=== PATIENT | male | born 1975 ===

== ENCOUNTER 2018-01-31 18:57 | Emergency (ER) | payer OTHER ==
[2018-01-31 19:19] VITALS: TEMP 98.2
[2018-01-31] MEDS ORDERED: Sodium Chloride 0.9% 1,000 ML IV STA (20:10)
--- NOTE | 2018-01-31 20:19 | ED PDOC ---
HPI: Male Pain Time Seen by Provider: 01/31/18 19:30 Chief Complaint (Nursing): Groin Pain Chief Complaint (Provider): Groin Pain History Per: Patient History/Exam Limitations: no limitations Onset/Duration Of Symptoms: Days (x4 weeks) Current Symptoms Are (Timing): Still Present Additional Complaint(s): 42 year old male who was told in the past that he may have dm presents to the ED with rash and swelling to distal part of penis onset 4 weeks. Patients uncircumcised foreskin is very red, and the underside of the foreskin is red and irritated. He reports increased difficulty retracting foreskin when he has to use the bathroom. He states he had dysuria, frequency, excessive thirst, but denies fever, chills vomiting, diarrhea, hematuria, flank pain or any other medical complaints. He admits t not seeking his PMD in a while. PMD: [facility] Past Medical History Reviewed: Historical Data, Nursing Documentation, Vital Signs Vital Signs: Last Vital Signs Temp 98.2 F 01/31/18 19:15 Pulse 86 01/31/18 19:15 Resp 18 01/31/18 19:15 BP 135/90 01/31/18 19:15 Pulse Ox 97 01/31/18 19:15 - Medical History PMH: Kidney Stones Denies: Chronic Kidney Disease - Surgical History Surgical History: No Surg Hx - Family History Family History: States: Diabetes, Hypertension - Social History Current smoker - smoking cessation education provided: No Ex-Smoker (has not smoked in the last 12 months): No - Home Medications Home Medications: Ambulatory Orders Medication Instructions Recorded Ibuprofen [Motrin] 600 mg PO Q6H PRN #20 tab 11/17/15 Tamsulosin [Flomax] 0.4 mg PO DAILY #14 cap 11/17/15 oxyCODONE/Acetaminophen [Percocet 1 tab PO Q6 PRN #20 tab 11/17/15 5/325 mg Tab] Clotrimazole 1% Cream [Lotrimin 1%] 1 appl TP BID #1 tube 01/31/18 Glucose Meter [Blood Glucose 1 dev XX PRN PRN #1 dev 01/31/18 Monitoring System] Glucose, Blood Test [Blood Glucose 1 packet XX PRN PRN #1 dev 01/31/18 Test Strips] metFORMIN [glucOPHAGE] 500 mg PO DAILY #30 tab 01/31/18 - Allergies Allergies/Adverse Reactions: Allergies Allergy/AdvReac Type Severity Reaction Status Date / Time No Known Allergies Allergy Verified 01/31/18 19:19 Review of Systems ROS Statement: Except As Marked, All Systems Reviewed And Found Negative Genitourinary Male: Positive for: Dysuria, Frequency, Rash (with erythema and irritation ), Penile Pain, Other (difficulty retracting foreskin). Negative for : Hematuria Physical Exam - Reviewed Nursing Documentation Reviewed: Yes Vital Signs Reviewed: Yes - Physical Exam Appears: Positive for: Non-toxic, No Acute Distress Skin: Positive for: Warm, Dry Eye Exam: Positive for: EOMI, PERRL ENT: Positive for: Pharynx Is (clear), Other (tacky mucous membranes) Neck: Positive for: Painless ROM, Supple Cardiovascular/Chest: Positive for: Regular Rate, Rhythm. Negative for: Murmur Respiratory: Positive for: Normal Breath Sounds. Negative for: Respiratory Distress Gastrointestinal/Abdominal: Positive for: Other (obese and protuberant abdomen) . Negative for: Tenderness, Mass, Distended, Guarding, Rebound Male Genital Exam: Positive for: no hernia, other (Whit invoice control clerk at bedside during exam: Uncircumcised, white fluid on inner foreskin and glans with erythema, no inguinal lymphadenopathy ). Negative for: testicular tenderness (R ), testicular tenderness (L) Back: Positive for: Normal Inspection. Negative for: Decreased ROM Extremity: Positive for: Normal ROM. Negative for: Deformity Lymphatic: Negative for: Adenopathy Neurologic/Psych: Positive for: Alert, Oriented (x3) - Laboratory Results Result Diagrams: 01/31/18 20:57 01/31/18 20:57 - ECG O2 Sat by Pulse Oximetry: 97 (RA) Pulse Ox Interpretation: Normal Medical Decision Making Medical Decision Making: Time: 1929 Initial Impression: Balanitis rule out hypoglycemia Initial Plan: --VBG --CMP --Magnesium --Phosphorous --Urine dip --CBC with differentials --Chlamydia --Glucose --Urine culture --Urinalysis Labs c/w hyperglycemia without anion gap or acidosis Udip with glucose and ketones Glucose decreasing after fluid and insulin DW pt findings and plan of care. Metformin daily, strict diabetic diet, f/u clinic within a week. Scribe Attestation: Documented by Winnie Christine, acting as a scribe for Carmen Morales MD Provider Scribe Attestation: All medical record entries made by the Scribe were at my direction and personally dictated by me. I have reviewed the chart and agree that the record accurately reflects my personal performance of the history, physical exam, medical decision making, and the department course for this patient. I have also personally directed, reviewed, and agree with the discharge instructions and disposition. Disposition - Clinical Impression Clinical Impression: Max Benitez Counseled Patient/Family Regarding: Studies Performed, Diagnosis, Need For Followup, Rx Given - Disposition Referrals: [facility] [Outside] Disposition: Routine/Home Disposition Time: 23:21 Condition: IMPROVED Prescriptions: Clotrimazole 1% Cream [Lotrimin 1%] 1 appl TP BID #1 tube Glucose Meter [Blood Glucose Monitoring System] 1 dev XX PRN PRN #1 dev PRN Reason: diabetes Glucose, Blood Test [Blood Glucose Test Strips] 1 packet XX PRN PRN #1 dev PRN Reason: diabetes metFORMIN [glucOPHAGE] 500 mg PO DAILY #30 tab Instructions: The ABCs of Eli Vilchis (LEONEL), Diabetes and Diet Print Language: SENEGALESE
[2018-01-31 20:37] LABS: VENOUS BLOOD GAS BASE EXCESS 2.8 mmol/L (0.0-2.0); VENOUS BLOOD GAS PCO2 47 mmHg (40-60); VENOUS BLOOD GAS PO2 37 mm/Hg (30-55); VENOUS BLOOD PH 7.39 (7.32-7.43)
[2018-01-31 20:53] LABS: URINE BILIRUBIN NEGATIVE (NEGATIVE); URINE BLOOD NEGATIVE (NEGATIVE); URINE CLARITY CLEAR (Clear); URINE COLOR COLORLESS (YELLOW); URINE GLUCOSE (UA) >=500 mg/dL (Normal); URINE LEUKOCYTE ESTERASE NEG Leu/uL (Negative); URINE PROTEIN NEGATIVE (NEGATIVE); URINE UROBILINOGEN 0.2-1.0 mg/dL (0.2-1.0)
[2018-01-31] MEDS ORDERED: Insulin Regular 100 units/ml SC STA (21:03)
[2018-01-31] MEDS ORDERED: Insulin Regular 100 units/ml IVP STA (21:03)
[2018-01-31 21:08] LABS: BASO % 0.8 % (0.0-2.0); EOS # 0.1 K/uL (0.0-0.7); HEMOGLOBIN 14.9 g/dL (12.0-18.0); LYMPH # 2.3 K/uL (1.0-4.3); LYMPH % 43.3 % (20.0-40.0); MEAN CORPUSCULAR HGB CONC 33.8 g/dL (33.0-37.0); MEAN PLATELET VOLUME 10.8 fl (7.2-11.7); MONO # 0.7 K/uL (0.0-0.8); MONO % 12.5 % (0.0-10.0); NEUT # 2.2 K/uL (1.8-7.0); NEUT % 41.4 % (50.0-75.0); NRBC % 0.3 % (0.0-0.0); RBC 5.31 Mil/uL (4.40-5.90); RED CELL DISTRIBUTION WIDTH 14.3 % (11.5-14.5); WHITE BLOOD COUNT 5.3 K/uL (4.8-10.8)
[2018-01-31 21:40] LABS: ALB/GLOB RATIO 1.1 (1.0-2.1); ALBUMIN 4.2 g/dL (3.5-5.0); ALT/SGPT 42 U/L (21-72); AST/SGOT 25 U/L (17-59); BLOOD UREA NITROGEN 15 mg/dl (9-20); CALCIUM 9.5 mg/dL (8.4-10.2); GFR AFRICAN-AMERICAN > 60; GFR NON-AFRICAN AMERICAN > 60
[2018-02-01 00:12] VITALS: BP 132/78; PULSE 82; RESP 17; O2SAT 98
== END 2018-01-31 23:37 | disposition home or self-care (01) ==
LOC: H.ER 18:57
DX: N48.1 Balanitis (principal); E11.65 Type 2 diabetes mellitus with hyperglycemia; Z79.84 Long term (current) use of oral hypoglycemic drugs
CPT/HCPCS: 80053; 81003; 82803; 82948; 83735; 84100; 85025; 87086; 87491; 87591; 96372; 96374; 99283; J7030

== ENCOUNTER 2018-02-02 17:22 | Observation (INO) | payer OTHER, SELFPAY ==
--- NOTE | 2018-02-02 18:11 | ED PDOC ---
ATTENTION PHYSICIANS Hyperglycemia/Hypoglycemia Chief Complaint (Provider): elevate glucose History Per: Patient : The patient does not have any of the infectious symptoms listed except for those marked. Additional Complaint(s): 42-year-old male with history of diabetes presents with hyperglycemia. He was seen at clinic today and was referred to ER for further evaluation. Glucose at clinic was over 500 and upon arrival to ER glucose is noted to be 440. Patient complains of slight dizziness with no other symptoms at this time. PMD: [facility] <Carmen Mcbride - Last Filed: 02/02/18 19:42> <Sonja Davis - Last Filed: 02/07/18 10:45> Time Seen by Provider: 02/02/18 18:07 Chief Complaint (Nursing): High Blood Sugar Past Medical History Reviewed: Historical Data, Nursing Documentation, Vital Signs Vital Signs: Last Vital Signs Temp 98.1 F 02/02/18 17:25 Pulse 89 02/02/18 17:25 Resp 16 02/02/18 17:25 BP 130/84 02/02/18 17:25 Pulse Ox 99 02/02/18 17:25 - Medical History PMH: Diabetes - Surgical History Other surgeries: b/l shoulder surgery - Family History Family History: States: Diabetes, Hypertension - Living Arrangements Living Arrangements: With Family - Social History Current smoker - smoking cessation education provided: No Alcohol: None Drugs: Denies <MayankaddiCarmen - Last Filed: 02/02/18 19:42> Vital Signs: Last Vital Signs Temp 97.9 F 02/03/18 07:32 Pulse 75 02/03/18 07:32 Resp 19 02/03/18 07:32 BP 109/65 02/03/18 07:32 Pulse Ox 96 02/03/18 07:32 <Sonja Davis - Last Filed: 02/07/18 10:45> - Home Medications Home Medications: Ambulatory Orders Medication Instructions Recorded Ibuprofen [Motrin Tab] 600 mg PO Q6H PRN #20 tab 11/17/15 Clotrimazole 1% Cream [Lotrimin 1%] 1 appl TP BID #1 tube 01/31/18 Glucose Meter [Blood Glucose 1 dev XX PRN PRN #1 dev 01/31/18 Monitoring System] Glucose, Blood Test [Blood Glucose 1 packet XX PRN PRN #1 dev 01/31/18 Test Strips] Fenofibrate [Tricor] 48 mg PO DAILY #30 tab 02/03/18 GlipiZIDE SR [Glucotrol XL] 5 mg PO DAILY #30 tab 02/03/18 metFORMIN [glucOPHAGE] 500 mg PO BID #60 tab 02/03/18 - Allergies Allergies/Adverse Reactions: Allergies Allergy/AdvReac Type Severity Reaction Status Date / Time No Known Allergies Allergy Verified 02/02/18 17:24 Review of Systems ROS Statement: Except As Marked, All Systems Reviewed And Found Negative Constitutional: Negative for: Fever, Chills, Weakness Cardiovascular: Negative for: Chest Pain Gastrointestinal: Negative for: Nausea, Vomiting Neurological: Positive for: Dizziness. Negative for: Headache <MayankCarmen fontana - Last Filed: 02/02/18 19:42> Physical Exam - Reviewed Nursing Documentation Reviewed: Yes Vital Signs Reviewed: Yes - Physical Exam Appears: Positive for: Well, Non-toxic, No Acute Distress Skin: Positive for: Normal Color. Negative for: Rash Eye Exam: Positive for: Normal appearance Cardiovascular/Chest: Positive for: Regular Rate, Rhythm Respiratory: Positive for: Normal Breath Sounds. Negative for: Wheezing, Respiratory Distress Gastrointestinal/Abdominal: Positive for: Other (Obese nontender abdomen) Back: Negative for: L CVA Tenderness, R CVA Tenderness Extremity: Positive for: Normal ROM Neurologic/Psych: Positive for: Alert, Oriented <MayankaddiCarmen - Last Filed: 02/02/18 19:42> - Laboratory Results Result Diagrams: 02/02/18 19:01 Urine dip results: Positive for: Ketones. Negative for: Leukocyte Esterase, Blood, Nitrate, Glucose, Bilirubin, Protein - ECG O2 Sat by Pulse Oximetry: 99 Pulse Ox Interpretation: Normal <MayankaddiCarmen - Last Filed: 02/02/18 19:42> - Laboratory Results Result Diagrams: 02/02/18 19:01 02/03/18 05:55 <Sonja Davis - Last Filed: 02/07/18 10:45> Medical Decision Making Medical Decision Makin-year-old male with history of diabetes presenting with hyperglycemia. Plan: CBC CMP EKG Urine dip IVF 10 units IV insulin ABG Case was discussed with Dr. Weber, family practice resident, who states to admit patient. <Carmen Mcbride - Last Filed: 02/02/18 19:42> Disposition - Patient ED Disposition Is Patient to be Admitted: Transfer of Care - Disposition Disposition: Transfer of Care Disposition Time: 20:00 Patient Signed Over To: Harriett Medina Handoff Comments: Signed put pending diagnostic testing results. <Carmen Mcbride - Last Filed: 02/02/18 19:42> <Sonja Davis - Last Filed: 02/07/18 10:45> - Clinical Impression Clinical Impression: Hyperglycemia - Disposition Condition: FAIR - PA / DRIVE IN TELLER / Resident Statement MD/DO has examined the patient and agrees with the treatment plan. <Sonja Davis - Last Filed: 02/07/18 10:45>
[2018-02-02] MEDS ORDERED: Sodium Chloride 0.9% 1,000 ML IV STA (18:26)
[2018-02-02] MEDS ORDERED: Insulin Regular 100 units/ml IV STA (18:26)
[2018-02-02 19:08] LABS: BASO % 0.5 % (0.0-2.0); EOS # 0.1 K/uL (0.0-0.7); EOS % 1.7 % (0.0-4.0); HEMOGLOBIN 14.7 g/dL (12.0-18.0); LYMPH # 2.3 K/uL (1.0-4.3); LYMPH % 38.2 % (20.0-40.0); MEAN CORPUSCULAR HEMOGLOBIN 28.3 pg (27.0-31.0); MEAN CORPUSCULAR HGB CONC 34.1 g/dL (33.0-37.0); MEAN PLATELET VOLUME 10.1 fl (7.2-11.7); MONO # 0.6 K/uL (0.0-0.8); MONO % 10.5 % (0.0-10.0); NEUT % 49.1 % (50.0-75.0); NRBC % 0.1 % (0.0-0.0); RBC 5.2 Mil/uL (4.40-5.90); RED CELL DISTRIBUTION WIDTH 14.5 % (11.5-14.5); WHITE BLOOD COUNT 6.1 K/uL (4.8-10.8)
[2018-02-02] MEDS ORDERED: Insulin Regular 100 units/ml ONE (19:21)
[2018-02-02 19:44] LABS: ALB/GLOB RATIO 1.1 (1.0-2.1); ALBUMIN 4.1 g/dL (3.5-5.0); ALT/SGPT 42 U/L (21-72); AST/SGOT 32 U/L (17-59); BLOOD UREA NITROGEN 15 mg/dl (9-20); CALCIUM 9.7 mg/dL (8.4-10.2); GFR NON-AFRICAN AMERICAN > 60
[2018-02-02 20:05] LABS: ABG ALLEN TEST YES; ARTERIAL BLOOD GAS HCO3 24.4 mmol/L (21-28); ARTERIAL BLOOD GAS HEMOGLOBIN 14.7 g/dL (11.7-17.4); ARTERIAL BLOOD GAS O2 CAPACITY 19.8 mL/dL (16-24); ARTERIAL BLOOD GAS O2 CONTENT 19.5 ML/dL (15-23); ARTERIAL BLOOD GAS O2 SAT 98.5 % (95-98); ARTERIAL BLOOD GAS PCO2 39 mm/Hg (35-45); ARTERIAL BLOOD GAS PO2 86 mm/Hg (80-100); ARTERIAL BLOOD GAS TCO2 25.4 mmol/L (22-28)
--- NOTE | 2018-02-02 21:32 | ED PDOC ---
- Laboratory Results Result Diagrams: 02/02/18 19:01 02/02/18 19:01 - ECG O2 Sat by Pulse Oximetry: 99 - Progress ED Course And Treament: Case endorsed to life insurance underwriter from Rae ROSENBAUM pending MADELEINE canseco Case discussed with FP resident on-call for placement in obs med/surg for hyperglycemia, uncontrolled DM Disposition - Clinical Impression Clinical Impression: Hyperglycemia - POA Present On Arrival: Poor Glycemic Control - Disposition Disposition: Hospitalized as Observation Patient Disposition Time: 21:32 Condition: FAIR Forms: [employer] (Japanese)
[2018-02-02] MEDS ORDERED: Glucagon Recombinant 1 mg Inj IM PRN (22:18)
[2018-02-02] MEDS ORDERED: Dextrose 50% SYRINGE Inj (50 ml) IV PRN (22:18)
--- NOTE | 2018-02-02 22:23 | CP.PCM.HP ---
History of Present Illness - History of Present Illness History of Present Illness: 42 yo , m, PMhx/o Prediabetes, Obesity, Nephrolithiasis, new onset of DM presents to ED referred from clinic due to symptomatic Hyperglycemia. Patient was seen in ED 2 days ago for balanitis and hyperglycemia and had ER f/u apt in clinic today. BS in clinic >500. Patient reports polyuria and polydipsia started about 2 months ago associated with weight loss 30 lbs and mild dizziness for the last 7 days. He denies fever, dysuria, flank pain, chest pain , SOB, n,v,abd pain, headache, confusion. Patient reports after ED visit he was discharged with metformin 500 mg daily and had acucheck 301 today at home. He denies Fhx/o DM . On evaluation in Ed patient with his and son, asymptomatic, vs stable. PMD: [facility]. Last seen today Dr Navarrete PMhx: Prediabetes, Obesity, Nephrolithiasis Allergies: NKDA Meds: Metformin 500 mg daily started 2 days ago PSurghx: b/L shoulder rotator cuff PSHx: + Etoh social. Neg rect drugs, cig Status: Full code Next of kin: Cuate Gaitan ED Course VS: normal PE: Genital uncircumcised foreskin mild redness. Labs: CBC: normal. CMP: normal, anion gap normal. AVG: normal BS: 440 . troponin normal Urine dip: glucosuria, mild ketone body 15 Imaging: CXR: increased peribronchial markings. No infiltrate as interpretated by me. EKG: NSR: St elevation probably due to early repolarization. Meds: Insulin Humulin 10 unit IV stat. IF fluids NS 1L Present on Admission - Present on Admission Any Indicators Present on Admission: No History of DVT/PE: No Urinary Catheter: No Review of Systems - Review of Systems All systems: reviewed and no additional remarkable complaints except - Genitourinary Genitourinary: Other (polyuria,polydypsia) - Neurological Neurological: Dizziness - Endocrine Endocrine: Polydipsia, Polyphagia, Polyuria Past Patient History - Past Medical History & Family History Past Medical History?: No - Past Social History Alcohol: None Drugs: Denies - CARDIAC Hx Cardiac Disorders: No - PULMONARY Hx Respiratory Disorders: No - NEUROLOGICAL Hx Neurological Disorder: No - HEENT Hx HEENT Problems: No - RENAL Hx Chronic Kidney Disease: No Hx Kidney Stones: Yes - ENDOCRINE/METABOLIC Hx Endocrine Disorders: No Hx Diabetes Mellitus Type 2: Yes - HEMATOLOGICAL/ONCOLOGICAL Hx Blood Disorders: No - INTEGUMENTARY Hx Dermatological Problems: No - MUSCULOSKELETAL/RHEUMATOLOGICAL Hx Musculoskeletal Disorders: No Hx Falls: No - GASTROINTESTINAL Hx Gastrointestinal Disorders: No - GENITOURINARY/GYNECOLOGICAL Hx Genitourinary Disorders: No - PSYCHIATRIC Hx Psychophysiologic Disorder: No Hx Substance Use: No - SURGICAL HISTORY Hx Surgeries: No - ANESTHESIA Hx Anesthesia: No Hx Anesthesia Reactions: No Hx Malignant Hyperthermia: No Meds Allergies/Adverse Reactions: Allergies Allergy/AdvReac Type Severity Reaction Status Date / Time No Known Allergies Allergy Verified 02/02/18 17:24 Physical Exam - Constitutional Appears: Non-toxic, No Acute Distress - Head Exam Head Exam: ATRAUMATIC, NORMOCEPHALIC - Eye Exam Eye Exam: Normal appearance - ENT Exam ENT Exam: Mucous Membranes Moist - Neck Exam Neck exam: Positive for: Normal Inspection - Respiratory Exam Respiratory Exam: Clear to Auscultation Bilateral. absent: Rales, Rhonchi, Wheezes - Cardiovascular Exam Cardiovascular Exam: REGULAR RHYTHM, +S1, +S2 - GI/Abdominal Exam GI & Abdominal Exam: Normal Bowel Sounds, Soft. absent: Guarding, Rebound, Tenderness - Extremities Exam Extremities exam: Positive for: normal inspection. Negative for: pedal edema - Back Exam Back exam: NORMAL INSPECTION. absent: CVA tenderness (L), CVA tenderness (R) - Neurological Exam Neurological exam: Alert, Oriented x3 - Psychiatric Exam Psychiatric exam: Normal Affect, Normal Mood - Skin Skin Exam: Erythema (uncircumcised foreskin is mild red, and the underside of the foreskin is mild red too) Results - Vital Signs Recent Vital Signs: Last Vital Signs Temp 98.1 F 02/02/18 17:25 Pulse 89 02/02/18 17:25 Resp 16 02/02/18 17:25 BP 130/84 02/02/18 17:25 Pulse Ox 99 02/02/18 21:32 - Labs Result Diagrams: 02/02/18 19:01 02/02/18 19:01 Labs: Laboratory Results - last 24 hr 02/02/18 02/02/18 02/02/18 17:31 19:01 19:01 WBC 6.1 RBC 5.20 Hgb 14.7 Hct 43.2 MCV 83.0 MCH 28.3 MCHC 34.1 RDW 14.5 Plt Count 286 MPV 10.1 Neut % (Auto) 49.1 L Lymph % (Auto) 38.2 Kent % (Auto) 10.5 H Eos % (Auto) 1.7 Baso % (Auto) 0.5 Neut # (Auto) 3.0 Lymph # (Auto) 2.3 Kent # (Auto) 0.6 Eos # (Auto) 0.1 Baso # (Auto) 0.0 pCO2 pO2 HCO3 ABG pH ABG Total CO2 ABG O2 Saturation ABG O2 Content ABG Base Excess ABG Hemoglobin ABG Carboxyhemoglobin POC ABG HHb (Measured) ABG Methemoglobin ABG O2 Capacity Mundo Test A-a O2 Difference Hgb O2 Saturation FiO2 Sodium 132 Potassium 4.2 Chloride 97 L Carbon Dioxide 25 Anion Gap 14 BUN 15 Creatinine 0.7 L Est GFR ( Amer) > 60 Est GFR (Non-Af Amer) > 60 POC Glucose (mg/dL) 440 H* Random Glucose 453 H* D Calcium 9.7 Total Bilirubin 0.9 AST 32 ALT 42 Alkaline Phosphatase 171 H D Troponin I Total Protein 7.9 Albumin 4.1 Globulin 3.7 Albumin/Globulin Ratio 1.1 02/02/18 02/02/18 02/02/18 19:46 19:50 20:49 WBC RBC Hgb Hct MCV MCH MCHC RDW Plt Count MPV Neut % (Auto) Lymph % (Auto) Kent % (Auto) Eos % (Auto) Baso % (Auto) Neut # (Auto) Lymph # (Auto) Kent # (Auto) Eos # (Auto) Baso # (Auto) pCO2 39 pO2 86 HCO3 24.4 ABG pH 7.40 ABG Total CO2 25.4 ABG O2 Saturation 98.5 H ABG O2 Content 19.5 ABG Base Excess -0.5 ABG Hemoglobin 14.7 ABG Carboxyhemoglobin 2.7 H POC ABG HHb (Measured) 1.4 ABG Methemoglobin 2.0 ABG O2 Capacity 19.8 Mundo Test Yes A-a O2 Difference 15.0 Hgb O2 Saturation 94.0 L FiO2 21.0 Sodium Potassium Chloride Carbon Dioxide Anion Gap BUN Creatinine Est GFR ( Amer) Est GFR (Non-Af Amer) POC Glucose (mg/dL) 301 H Random Glucose Calcium Total Bilirubin AST ALT Alkaline Phosphatase Troponin I < 0.0120 Total Protein Albumin Globulin Albumin/Globulin Ratio Assessment & Plan - Assessment and Plan (Free Text) Plan: 42 yo , m, PMhx/o Prediabetes, Obesity, Nephrolithiasis, new onset of DM admitted for symptomatic Hyperglycemia 1) Hyperglycemia -symptomatic 2/2 to new onset DM -BS ED: 440 mg/dl, AVB normal, no acidotic, anion gap normal -s/p insulin 10 unit ED. BS 301 -SSI -Hypoglycemia protocol -NS maintenance 2) DM uncontrolled -new onset -hx/o prediabetes -recent seen in in ED on metformin 500 mg daily - Metformin 500 mg BID -f/u hgb A1c, lipid profile 3) Balanitis -resolving -c/w clotrimazole cream top BID 4) Obesity Recent weight loss due to symptomatic hyperglycemia -f/u lipid profile 5) Nephrolithiasis -controlled -CT abd 2015 reviewed: right midpole lithiasis 1-2 mm. distal uretheral lithiasis 6) DVT Prophylaxis -Lovenox 40 mg sc daily
[2018-02-02] MEDS: Sodium Chloride 0.9% 1,000 ML IV SCH (23:59)
[2018-02-03] MEDS: Sodium Chloride 0.9% 1,000 ML IV SCH (07:27)
[2018-02-03 07:29] LABS: ALB/GLOB RATIO 1.1 (1.0-2.1); ALBUMIN 3.6 g/dL (3.5-5.0); ALT/SGPT 45 U/L (21-72); AST/SGOT 38 U/L (17-59); BLOOD UREA NITROGEN 10 mg/dl (9-20); CALCIUM 8.6 mg/dL (8.4-10.2); GFR NON-AFRICAN AMERICAN > 60
[2018-02-03] MEDS: Insulin Lispro (humaLOG) 100 Units/ml Inj SC SCH ×2 (07:32→12:17)
[2018-02-03 07:33] VITALS: BP 109/65; PULSE 75; RESP 19; TEMP 97.9; O2SAT 96
[2018-02-03 08:15] LABS: HDL CHOLESTEROL 19 MG/DL (30-70)
[2018-02-03 08:26] LABS: LDL CHOLESTEROL 35 mg/dL (0-129)
--- NOTE | 2018-02-03 08:42 | RAD ---
Date of service: 02/02/2018 HISTORY: clearance COMPARISON: No prior. FINDINGS: LUNGS: The lungs are well inflated and clear. PLEURA: No significant pleural effusion identified, no pneumothorax apparent. CARDIOVASCULAR: Normal. OSSEOUS STRUCTURES: No significant abnormalities. VISUALIZED UPPER ABDOMEN: Normal. OTHER FINDINGS: None. IMPRESSION: No active pulmonary disease.
[2018-02-03] MEDS ORDERED: Enoxaparin 40 mg Syringe SC SCH (09:00)
--- NOTE | 2018-02-03 09:11 | CARD ---
APPROVED REPORT Date of service: 02/02/2018 EKG Measurement Heart [id number] <Conclusion> Normal sinus rhythm ST elevation, probably due to early repolarization Borderline ECG
--- NOTE | 2018-02-03 10:22 | CP.PCM.DIS ---
Provider - Provider Date of Admission: 02/02/18 21:29 Attending physician: Tomasa Heath MD Time Spent in preparation of Discharge (in minutes): 35 Diagnosis - Discharge Diagnosis (1) Hyperglycemia Status: Acute (2) Hypertriglyceridemia Status: Chronic Hospital Course - Lab Results Lab Results: Most Recent Lab Values WBC 6.1 K/uL (4.8-10.8) 02/02/18 19: RBC 5.20 Mil/uL (4.40-5.90) 02/02/18 19: Hgb 14.7 g/dL (12.0-18.0) 02/02/18 19: Hct 43.2 % (35.0-51.0) 02/02/18: MCV 83.0 fl (80.0-94.0) 02/02/18: MCH 28.3 pg (27.0-31.0) 02/02/18: MCHC 34.1 g/dL (33.0-37.0) 02/02/18 19: RDW 14.5 % (11.5-14.5) 02/02/18 19: Plt Count 286 K/uL (130-400) 02/02/18 19: MPV 10.1 fl (7.2-11.7) 02/02/18 19: Neut % (Auto) 49.1 % (50.0-75.0) L 02/02/18: Lymph % (Auto) 38.2 % (20.0-40.0) 02/02/18 19: Hughes % (Auto) 10.5 % (0.0-10.0) H 02/02/18 19: Eos % (Auto) 1.7 % (0.0-4.0) 02/02/18 19: Baso % (Auto) 0.5 % (0.0-2.0) 02/02/18 19: Neut # (Auto) 3.0 K/uL (1.8-7.0) 02/02/18 19: Lymph # (Auto) 2.3 K/uL (1.0-4.3) 02/02/18 19: Hughes # (Auto) 0.6 K/uL (0.0-0.8) 02/02/18 19:01 Eos # (Auto) 0.1 K/uL (0.0-0.7) 02/02/18 19:01 Baso # (Auto) 0.0 K/uL (0.0-0.2) 02/02/18 19:01 pCO2 39 mm/Hg (35-45) 02/02/18 19:50 pO2 86 mm/Hg (80-100) 02/02/18 19:50 HCO3 24.4 mmol/L (21-28) 02/02/18 19:50 ABG pH 7.40 (7.35-7.45) 02/02/18 19:50 ABG Total CO2 25.4 mmol/L (22-28) 02/02/18 19:50 ABG O2 Saturation 98.5 % (95-98) H 02/02/18 19:50 ABG O2 Content 19.5 ML/dL (15-23) 02/02/18 19:50 ABG Base Excess -0.5 mmol/L (-2.0-3.0) 02/02/18 19:50 ABG Hemoglobin 14.7 g/dL (11.7-17.4) 02/02/18 19:50 ABG Carboxyhemoglobin 2.7 % (0.5-1.5) H 02/02/18 19:50 POC ABG HHb (Measured) 1.4 % (0.0-5.0) 02/02/18 19:50 ABG Methemoglobin 2.0 % (0.0-3.0) 02/02/18 19:50 ABG O2 Capacity 19.8 mL/dL (16-24) 02/02/18 19:50 Mundo Test Yes 02/02/18 19:50 A-a O2 Difference 15.0 mm/Hg 02/02/18 19:50 Hgb O2 Saturation 94.0 % (95.0-98.0) L 02/02/18 19:50 FiO2 21.0 % 02/02/18 19:50 Sodium 136 mmol/l (132-148) 02/03/18 05:55 Potassium 4.3 MMOL/L (3.6-5.0) 02/03/18 05:55 Chloride 103 mmol/L (98-107) 02/03/18 05:55 Carbon Dioxide 24 mmol/L (22-30) 02/03/18 05:55 Anion Gap 13 (10-20) 02/03/18 05:55 BUN 10 mg/dl (9-20) 02/03/18 05:55 Creatinine 0.6 mg/dl (0.8-1.5) L 02/03/18 05:55 Est GFR ( Amer) > 60 02/03/18 05:55 Est GFR (Non-Af Amer) > 60 02/03/18 05:55 POC Glucose (mg/dL) 268 mg/dL (65-110) H 02/03/18 06:11 Random Glucose 291 mg/dL (75-110) H 02/03/18 05:55 Calcium 8.6 mg/dL (8.4-10.2) 02/03/18 05:55 Total Bilirubin 1.1 mg/dl (0.2-1.3) 02/03/18 05:55 AST 38 U/L (17-59) 02/03/18 05:55 ALT 45 U/L (21-72) 02/03/18 05:55 Alkaline Phosphatase 122 U/L (38-126) 02/03/18 05:55 Troponin I < 0.0120 ng/mL (0.00-0.120) 02/02/18 19:46 Total Protein 6.9 G/DL (6.3-8.2) 02/03/18 05:55 Albumin 3.6 g/dL (3.5-5.0) 02/03/18 05:55 Globulin 3.3 gm/dL (2.2-3.9) 02/03/18 05:55 Albumin/Globulin Ratio 1.1 (1.0-2.1) 02/03/18 05:55 Triglycerides 746 mg/DL (0-149) H D 02/03/18 05:55 Cholesterol 217 mg/dL (0-199) H 02/03/18 05:55 LDL Cholesterol Direct 35 mg/dL (0-129) 02/03/18 05:55 HDL Cholesterol 19 MG/DL (30-70) L 02/03/18 05:55 - Hospital Course Hospital Course: 42 YO Male with PMHx of Pre-diabetes, Obesity, Nephrolithiasis, admitted for symptomatic Hyperglycemia. Blood work sig for elevated triglycerides, and HbA1c of . Pt is doing well this AM, hyperglycemia improving. Will d/c pt home with follow up in [facility] on 02/09/18 @ 3:[address] Navarrete. Continue Metfromin 500mg BID, will start Glipizide 5mg and will start Fenofibrate 48 mg for hypertriglyceridemia. Of note, pts ASCVD score is 10.2%, will benefit from intensity statin as outpatient, due to high triglycerides will start Fibrates for now. Cont Meds: metFORMIN [glucOPHAGE] 500 mg PO BID #60 tab New Meds: Fenofibrate [Tricor] 48 mg PO DAILY #30 tab GlipiZIDE SR [Glucotrol XL] 5 mg PO DAILY #30 tab Discharge Exam - Head Exam Head Exam: ATRAUMATIC, NORMOCEPHALIC - Eye Exam Eye Exam: Normal appearance - ENT Exam ENT Exam: Mucous Membranes Moist - Respiratory Exam Respiratory Exam: Clear to PA & Lateral, NORMAL BREATHING PATTERN. absent: Wheezes - Cardiovascular Exam Cardiovascular Exam: REGULAR RHYTHM, +S1, +S2 - GI/Abdominal Exam GI & Abdominal Exam: Normal Bowel Sounds, Soft. absent: Tenderness - Extremities Exam Extremities exam: normal inspection - Neurological Exam Neurological exam: Alert, Oriented x3 - Psychiatric Exam Psychiatric exam: Normal Affect, Normal Mood Discharge Plan - Discharge Medications Prescriptions: Fenofibrate [Tricor] 48 mg PO DAILY #30 tab GlipiZIDE SR [Glucotrol XL] 5 mg PO DAILY #30 tab metFORMIN [glucOPHAGE] 500 mg PO BID #60 tab - Follow Up Plan Condition: FAIR Disposition: HOME/ ROUTINE Instructions: Hyperglycemia, Adult (DC), Diabetes and Diet Additional Instructions: Follow up at [facility] on 02/09/18 @ 3:[address] Navarrete ER precautions for worsening symptoms, fever over 100.4 with Tylenol Referrals: [facility] [Outside] Sudhir Navarrete MD [Family Provider] -
== END 2018-02-03 13:45 | disposition home or self-care (01) ==
LOC: H.ER 17:22 → H.ERHOLD 21:29 → H.MEDSURG1 02-03 00:41
PROVIDERS: ADMIT Family Medicine Geriatric Medicine; ATTEND Family Medicine Geriatric Medicine
DX: E11.65 Type 2 diabetes mellitus with hyperglycemia (principal); E78.1 Pure hyperglyceridemia; N48.1 Balanitis; N20.0 Calculus of kidney; E66.9 Obesity, unspecified; Z68.37 Body mass index [BMI] 37.0-37.9, adult; Z87.442 Personal history of urinary calculi; Z79.84 Long term (current) use of oral hypoglycemic drugs
CPT/HCPCS: 36415; 71045; 80053; 80061; 82803; 82948; 83036; 84484; 85025; 93005; 99284; G0378; J1650; J7030